=== PATIENT | female | born 1975 | race Caucasian/White ===

== ENCOUNTER 2020-05-12 11:17 | Outpatient (CLI) | payer OTHER, SELFPAY ==
--- NOTE | ~2020-05-12 | US_ITS ---
EXAMINATION: US venous doppler [facility] DATE: 05/12/2020 11:59 INDICATION: Lower limb swelling TECHNIQUE: [place]aver scale images without and with compression and Doppler images of the bilateral lower e xtremity veins were obtained. COMPARISON: None FINDINGS: The right common femoral vein, profunda femoral vein, femoral vein, popliteal vein, peroneal trunk, p osterior tibial veins, and greater saphenous vein are patent. The left common femoral vein, profunda femoral vein, femoral vein, popliteal vein, peroneal trunk, po sterior tibial veins, and greater saphenous vein are patent. IMPRESSION: 1. Patent bilateral lower extremity veins. No evidence of deep venous thrombosis. Reviewed, dictated and finalized at location A. [facility]NER IMPRESSION: 1. Patent bilateral lower extremity veins. No evidence of deep venous thrombosi s.
== END 2020-05-12 11:18 | disposition home or self-care (01) ==
LOC: ANHIMG 11:28
PROVIDERS: PCP Family Medicine; Visit Provider Nurse Practitioner Family
DX: R60.0 Localized edema (principal)
CPT/HCPCS: 93970

== ENCOUNTER 2023-03-09 08:37 | Emergency (ER) | payer OTHER, SELFPAY ==
--- NOTE | 2023-03-09 08:51 | ED.URI ---
HPI - URI/Sore Throat General Chief Complaint: Upper Respiratory Infection Stated Complaint: cough,congestion,bodyaches Time Seen by Provider: 03/09/23 08:51 Source: patient Mode of arrival: ambulatory Limitations: no limitations History of Present Illness HPI Narrative: Anny is a 47-year-old female patient presenting to the clinic today with complaints of cough, congestion, and body aches x2 days. She reports she is blowing her nose and coughing up green/yellow phlegm. She denies any fevers. Denies any sore throat, chest pain, or shortness of breath. Was given antibiotics and Tessalon Perles for and illness she had back in December. States that those symptoms completely resolved and over the last 2 days the symptoms began. MD elicited complaint: cough, nasal congestion and other (Body aches, chest congestion) Related Data Allergies Allergy/AdvReac Type Severity Reaction Status Date / Time Penicillins Allergy Unknown Rash Verified 03/09/23 09:03 Review of Systems Review of Systems: Pertinent positives per HPI. Patient denies any fever, chills, rash, headache, visual changes, dizziness, shortness of breath, chest pain, palpitations, nausea, vomiting, diarrhea, constipation, abdominal pain, or any urinary issues. [facility] Past Medical History Medical History Adult BMI 34.0-34.9 kg/sq m BMI 36.0-36.9,adult BMI 38.0-38.9,adult Family History Family History Mother Hypertension Father Cerebrovascular accident Social History Social History Smoking status: Never smoker Second hand tobacco smoke exposure: No Alcohol intake: never Substance use: never Substance use type: does not use Living arrangements: with family Occupation/Education: occupation Additional occupation/education comments: [employer] Gender identity (if verbalized by the patient): Female Comments At the time of my signature, I reviewed and agree with the nursing past medical, surgical, social, and family history. There is no relevant family history pertinent to the patient complaint. Exam Narrative: General: Well-developed, obese, in no apparent distress Head: Normocephalic, atraumatic Eyes: Pupils equally round and reactive to light bilaterally, EOM intact, sclera and conjunctive clear, no discharge, lids normal Ears: TMs intact and congested, ear canals clear, no drainage, grossly hearing normal. Nose: Nares patent, clear nasal discharge, moderate inflammation, no sinus tenderness. Mouth: Oral pharynx without lesions or masses, good dentition, MMM. Postnasal drip Neck: Supple, trachea midline, no enlargement of anterior or posterior cervical nodes, no thyroid masses or goiter palpable. Cardio: Regular rate and rhythm, s1 and s2 normal, no murmur appreciated. Resp: Clear to auscultation bilaterally, no rhonchi, rales, wheezing or rubs Course Course Emergency Course: Portions of this record may have been created with voice recognition software. Level of Care: Express Care Visit Vital Signs Vital signs: Vital signs reviewed MDM - URI/Sore Throat MDM Narrative Medical decision making narrative: At the time of visit patient is resting comfortably on the exam table. Patient appears to be nontoxic. Supportive measures were discussed with the patient and they voiced understanding discharge instructions and agrees to treatment plan. Return precautions reviewed Differential Diagnosis Differential diagnosis: Likely upper respiratory infection, otitis media, sinusitis, viral infection, bronchitis, influenza, pharyngitis and other (COVID) Discharge Plan Discharge Clinical Impression: Upper respiratory infection with cough and congestion Patient Disposition: Home, Self-Care Condition: Stable Instructions: Antibiotic Form, Upper
[2023-03-09 09:09] VITALS: BP 148/90; PULSE 91; RESP 18; TEMP 36.1; O2SAT 98
== END 2023-03-09 09:25 | disposition home or self-care (01) ==
LOC: EXPTROY 08:54
PROVIDERS: Emergency Provider Nurse Practitioner Family; PCP Family Medicine
DX: J06.9 Acute upper respiratory infection, unspecified (principal); Z20.822 Contact with and (suspected) exposure to COVID-19; I10 Essential (primary) hypertension
CPT/HCPCS: 87426; 87804; 99213; C9803; G0463

== ENCOUNTER 2024-09-22 13:15 | Emergency (ER) | payer OTHER, SELFPAY ==
--- NOTE | 2024-09-22 13:16 | ED_ITS ---
HPI - Skin/Abscess/Foreign Bdy General Chief complaint: Skin/Abscess/Foreign Body Stated complaint: Skin / RT Arm Time Seen by Provider: 09/22/24 13:16 Source: patient Mode of arrival: ambulatory Limitations: no limitations History of Present Illness HPI narrative: Anny is a 48-year-old female patient presenting to the clinic today with complaints of possible insect bite to the left proximal arm. She reports she injured his to 2 days ago. Started having some burning and stinging pain with some swelling to the left proximal medial forearm. Does have some slight itching and developed some hives. Hives have improved however she is having swelling and burning pain with some shooting pain down into the 4th and 5th fingers of the left hand. No fevers, chills, body aches. No respiratory distress-no shortness of breath, chest pain, tongue swelling, drooling, or difficulty swallowing. Related Data Allergies Allergy/AdvReac Type Severity Reaction Status Date / Time Penicillins Allergy Mild Rash Verified 09/22/24 13:17 Review of Systems Review of Systems: Pertinent positives per HPI. Patient denies any fever, chills, rash, headache, visual changes, dizziness, cough, shortness of breath, chest pain, palpitations, nausea, vomiting, diarrhea, constipation, abdominal pain, or any urinary issues. [facility] Past Medical History Medical History Elevated lipids BMI 36.0-36.9,adult Adult BMI 34.0-34.9 kg/sq m Elevated BP without diagnosis of hypertension BMI 38.0-38.9,adult Acute sore throat Family History Family History Mother Hypertension Hyperlipemia Father Cerebrovascular accident Hyperlipemia Hypertension Social History Social History Smoking status: Never smoker Second hand tobacco smoke exposure: No Alcohol intake: current Substance use: never Substance use type: does not use Do You Feel Safe in your Home?: Yes Lack of Transportation: No Lack of Food: Never True Current Housing: I Have Housing Concerned About Future Housing: No Difficulty Paying Gas/Electric Bills: No Difficulty Paying for Meds: No Currently Unemployed: No Education: Bachelor's Degree Difficulty w/ Childcare or Family Care: No Living arrangements: with family Occupation/Education: occupation Additional occupation/education comments: [employer]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 Gender identity (if verbalized by the patient): Female Comments At the time of my signature, I reviewed and agree with the nursing past medical, surgical, social, and family history. There is no relevant family history pertinent to the patient complaint. Exam Narrative: General: Well-developed, obese, in no apparent distress Head: Normocephalic, atraumatic. Cardio: Regular rate and rhythm, s1 and s2 normal, no murmur appreciated. Resp: Clear to auscultation bilaterally, no rhonchi, rales, wheezing or rubs. Integumentary: [place], warm, and dry, red raised rash with small amount of blistering- rash is erythemic and tenderness to palpation with induration with radiation of pain down to the 4th and 5th fingers Course Course Emergency Course: Portions of this record may have been created with voice recognition software. Level of Care: Express Care Visit Vital Signs Vital signs: Vital Signs Temperature 36.4 C 09/22/24 13:19 Pulse Rate 102 H 09/22/24 13:19 Respiratory Rate 16 09/22/24 13:19 Blood Pressure 124/83 09/22/24 13:19 Pulse Oximetry 100 09/22/24 13:19 Oxygen Delivery Room Air 09/22/24 13:19 Temperature 36.4 C 09/22/24 13:19 Pulse Rate 102 H 09/22/24 13:19 Respiratory Rate 16 09/22/24 13:19 Blood Pressure 124/83 09/22/24 13:19 Pulse Oximetry 100 09/22/24 13:19 Oxygen Delivery Room Air 09/22/24 13:19 Vital signs reviewed MDM - Skin/Abscess/Foreign Bdy MDM Narrative Medical decision making narrative: At the time of visit patient is resting comfortably on the exam table. Patient appears to be nontoxic. Possible insect bite to the left proximal arm. She reports she injured his to 2 days ago. Started having some burning and stinging pain with some swelling to the left proximal medial forearm. Does have some slight itching and developed some hives. No respiratory symptoms, tongue swelling, drooling, or difficulty swallowing. Plan: I suspect patient has an insect sting/bite to the left proximal medial forearm. Prescription for prednisone, triamcinolone cream, and clindamycin was sent to the pharmacy-will send in prednisone triamcinolone cream to help with inflammation and swelling as well as clindamycin to cover for infection. Supportive measures were discussed with the patient and they voiced understanding discharge instructions and agrees to treatment plan. Return precautions reviewed Differential Diagnosis Differential diagnosis: Likely abscess of skin or subcutaneous tissue, viral exanthem, dermatophytosis, urticaria, herpes zoster, allergic reaction to drug, cellulitis, eczema, insect bites, impetigo and contact dermatitis Discharge Plan Discharge Clinical Impression: Infected insect bite Qualifiers: Encounter type: initial encounter Qualified Code(s): W57.XXXA - Bitten or stung by nonvenomous insect and other nonvenomous arthropods, initial encounter Patient Disposition: Home Condition: Stable Instructions: Antibiotic Form, Insect Bite or Sting (ED) Additional Instructions: Take clindamycin as prescribed Take prednisone as directed Apply triamcinolone cream as directed Avoid scratching as this can cause a secondary infection May take benadryl 25-50mg every 6 hours as needed for itching/swelling Follow up with your PCP in 3-5 days if symptoms persist or sooner if they worsen Go to the Emergency Room if symptoms worsen- fever, rash spreading with treatment, shortness of breath, tongue swelling, drooling, or chest pain Patient Language: Kazakh Prescriptions: New prednisone 20 mg tablet 40 mg PO DAILY 5 Days Qty: 10 0RF triamcinolone acetonide 0.1 % cream 1 applic topical BID 7 Days Qty: 30 0RF clindamycin HCl [Cleocin HCl] 300 mg capsule 300 mg PO Q8H 7 Days Qty: 21 0RF No Action lisinopril-hydrochlorothiazide 10-12.5 mg tablet See Rx Instructions .ROUTE .COMPLEX Qty: 90 3RF Dose Instruction: TAKE 1 TABLET BY MOUTH DAILY Rx Instructions: TAKE 1 TABLET BY MOUTH DAILY sumatriptan succinate [Imitrex] 100 mg tablet See Rx Instructions PO .COMPLEX Qty: 10 2RF Rx Instructions: take 1 tab at onset of headache; if no relief, may repeat 1 tab after at least 2 hrs; max = 2 tabs/24 hrs PO Follow-up/Referrals: Adarsh Wilson MD [Primary Care Provider] - Time of Disposition: 13:32 Quality NIHSS Nursing Documentation ED NIHSS nursing documentation: reviewed/agree
[2024-09-22 13:19] VITALS: BP 124/83; PULSE 102; RESP 16; TEMP 36.4; O2SAT 100
--- OUTSIDE RECORDS SUMMARY | 2024-09-22 13:19 | XMS_ITS | Patient Health Record ---
Author Organization [facility] [employer] [place] ([address]) Address [address] [place] [phone] Care Team Providers Care Bottom Ironer Name Role Phone Chepe López Unavailable [phone] Reason For Referral No Information Medications Medication SIG (Take, Route, Fr equency, Duration) Notes Start Date End Date Status Lisinopril 2.5 MG 1 tab(s) orally once a day Active Problems Problem Type SNOMED Code ICD Code Onset Dates Problem Status W/U Status Risk Notes Problem Morbid obesity (disorder) (125649004) Morbid (severe) obesity due to excess calories (E66.01) Active confirmed Problem Malaise (859980137) Other malaise (R53.81) Active confirmed Problem Chronic fatigue syndrome (disorder) (21685722) Chronic fatigue, unspecified (R53.82) Active confirmed Problem Fatigue (35795568) Other fatigue (R53.83) Active confirmed Vital Signs Height 64.8 in 09/17/2024 Weight 202.6 lbs 09/17/2024 BMI 33.92 kg/m2 09/17/2024 Encounters Encounter Location Date Provider Diagnosis [facility] [employer] [place] ([address]) [address] [place] [phone] 09/23/2023 Chepe López Morbid (severe) obesity due to excess calories E66.01 ; Chronic fatigue, unspecified R53.82 ; Other fatigue R53.83 and Other malaise R53.81 [facility] [employer] [facility] ([address]) [address] [place] [phone] 09/30/2023 Chepe López Morbid (severe) obesity due to excess calories E66.01 ; Chronic fatigue, unspecified R53.82 ; Other fatigue R53.83 and Other malaise R53.81 [facility] [place] ([address]) [address] [place] [address] 10/07/2023 Chepe Win Morbid (severe) obesity due to excess calories E66.01 ; Chronic fatigue, unspecified R53.82 ; Other fatigue R53.83 and Other malaise R53.81 [facility] ([address]) [address] [place] [phone] 10/14/2023 Chepe Win Morbid (severe) obesity due to excess calories E66.01 ; Chronic fatigue, unspecified R53.82 ; Other fatigue R53.83 and Other malaise R53.81 [facility] ([address]) [address] [place] [phone] 10/21/2023 Chepe Win Morbid (severe) obesity due to excess calories E66.01 ; Chronic fatigue, unspecified R53.82 ; Other fatigue R53.83 and Other malaise R53.81 [facility] ([address]) [address] [place] [phone] 11/05/2023 Chepe Win Morbid (severe) obesity due to excess calories E66.01 ; Chronic fatigue, unspecified R53.82 ; Other fatigue R53.83 and Other malaise R53.81 [facility] ([address]) [address] [place] [phone] 11/11/2023 Chepe Win Morbid (severe) obesity due to excess calories E66.01 ; Chronic fatigue, unspecified R53.82 ; Other fatigue R53.83 and Other malaise R53.81 [facility] ([address]) [address] [place] [phone] 11/18/2023 Chepe Win Morbid (severe) obesity due to excess calories E66.01 ; Chronic fatigue, unspecified R53.82 ; Other fatigue R53.83 and Other malaise R53.81 [facility] ([address]) [address] [place] [address] 11/25/2023 Chepe Win Morbid (severe) obesity due to excess calories E66.01 ; Chronic fatigue, unspecified R53.82 ; Other fatigue R53.83 and Other malaise R53.81 [facility] [place] ([address]) [address] [place] [phone] 12/02/2023 Chepe Win [facility] ([address]) [address] [place] [phone] 12/02/2023 Chepe Win Morbid (severe) obesity due to excess calories E66.01 ; Chronic fatigue, unspecified R53.82 ; Other fatigue R53.83 and Other malaise R53.81 [facility] ([address]) [address] [place] [phone] 12/09/2023 Chepe Win Morbid (severe) obesity due to excess calories E66.01 ; Chronic fatigue, unspecified R53.82 ; Other fatigue R53.83 and Other malaise R53.81 [facility] ([address]) [address] [place] [phone] 12/16/2023 Chepe Win Morbid (severe) obesity due to excess calories E66.01 ; Chronic fatigue, unspecified R53.82 ; Other fatigue R53.83 and Other malaise R53.81 [facility] ([address]) [address] [place] [phone] 12/23/2023 Chepe Win Morbid (severe) obesity due to excess calories E66.01 ; Chronic fatigue, unspecified R53.82 ; Other fatigue R53.83 and Other malaise R53.81 [facility] ([address]) [address] [place] [phone] 12/30/2023 Chepe Win Morbid (severe) obesity due to excess calories E66.01 ; Chronic fatigue, unspecified R53.82 ; Other fatigue R53.83 and Other malaise R53.81 [facility] ([address]) [address] [place] [address] 01/13/2024 Chepe Win Morbid (severe) obesity due to excess calories E66.01 ; Chronic fatigue, unspecified R53.82 ; Other fatigue R53.83 and Other malaise R53.81 [facility] ([address]) [address] [place] [address] 01/20/2024 Chepe Win Morbid (severe) obesity due to excess calories E66.01 ; Chronic fatigue, unspecified R53.82 ; Other fatigue R53.83 and Other malaise R53.81 [facility] ([address]) [address] [place] [address] 01/28/2024 Chepe Win Morbid (severe) obesity due to excess calories E66.01 ; Chronic fatigue, unspecified R53.82 ; Other fatigue R53.83 and Other malaise R53.81 [facility] ([address]) [address] [place] [address] 02/17/2024 Chepe Win Morbid (severe) obesity due to excess calories E66.01 ; Chronic fatigue, unspecified R53.82 ; Other fatigue R53.83 and Other malaise R53.81 [facility] ([address]) [address] [place] [address] 02/24/2024 Chepe Win Morbid (severe) obesity due to excess calories E66.01 ; Chronic fatigue, unspecified R53.82 ; Other fatigue R53.83 and Other malaise R53.81 [facility] ([address]) [address] [place] [address] 03/02/2024 Chepe Win Morbid (severe) obesity due to excess calories E66.01 ; Chronic fatigue, unspecified R53.82 ; Other fatigue R53.83 and Other malaise R53.81 [facility] ([address]) [address] [place] [address] 03/16/2024 Chepe Win Morbid (severe) obesity due to excess calories E66.01 ; Chronic fatigue, unspecified R53.82 ; Other fatigue R53.83 and Other malaise R53.81 [facility] ([address]) [address] [place] [phone] 03/24/2024 Chepe Win Morbid (severe) obesity due to excess calories E66.01 ; Chronic fatigue, unspecified R53.82 ; Other fatigue R53.83 and Other malaise R53.81 [facility] ([address]) [address] [place] [phone] 04/01/2024 Chepe Win Morbid (severe) obesity due to excess calories E66.01 ; Chronic fatigue, unspecified R53.82 ; Other fatigue R53.83 and Other malaise R53.81 [facility] ([address]) [address] [place] [phone] 04/08/2024 Chepejamia López [facility] ([address]) [address] [place] [phone] 04/08/2024 Chepe Win Morbid (severe) obesity due to excess calories E66.01 ; Chronic fatigue, unspecified R53.82 ; Other fatigue R53.83 and Other malaise R53.81 [facility] ([address]) [address] [place] [phone] 04/14/2024 Chepe Win Morbid (severe) obesity due to excess calories E66.01 ; Chronic fatigue, unspecified R53.82 ; Other fatigue R53.83 and Other malaise R53.81 [facility] ([address]) [address] [place] [phone] 04/21/2024 Chepe Win Morbid (severe) obesity due to excess calories E66.01 ; Chronic fatigue, unspecified R53.82 ; Other fatigue R53.83 and Other malaise R53.81 [facility] ([address]) [address] [place] [phone] 04/28/2024 Chepe Win Morbid (severe) obesity due to excess calories E66.01 ; Chronic fatigue, unspecified R53.82 ; Other fatigue R53.83 and Other malaise R53.81 [facility] ([address]) [address] [place] [phone] 05/05/2024 Chepe Win Morbid (severe) obesity due to excess calories E66.01 ; Chronic fatigue, unspecified R53.82 ; Other fatigue R53.83 and Other malaise R53.81 [facility] ([address]) [address] [place] [phone] 05/12/2024 Chepe Win Morbid (severe) obesity due to excess calories E66.01 ; Chronic fatigue, unspecified R53.82 ; Other fatigue R53.83 and Other malaise R53.81 [facility] ([address]) [address] [place] [phone] 05/19/2024 Chepe Win Morbid (severe) obesity due to excess calories E66.01 ; Chronic fatigue, unspecified R53.82 ; Other fatigue R53.83 and Other malaise R53.81 [facility] ([address]) [address] [place] [phone] 05/26/2024 Chepe Win Morbid (severe) obesity due to excess calories E66.01 ; Chronic fatigue, unspecified R53.82 ; Other fatigue R53.83 and Other malaise R53.81 [facility] ([address]) [address] [place] [phone] 06/02/2024 Chepe Win Morbid (severe) obesity due to excess calories E66.01 ; Chronic fatigue, unspecified R53.82 ; Other fatigue R53.83 and Other malaise R53.81 [facility] ([address]) [address] [place] [phone] 06/09/2024 Chepe Win Morbid (severe) obesity due to excess calories E66.01 ; Chronic fatigue, unspecified R53.82 ; Other fatigue R53.83 and Other malaise R53.81 [facility] ([address]) [address] [place] [phone] 06/17/2024 Chepe López Morbid (severe) obesity due to excess calories E66.01 ; Chronic fatigue, unspecified R53.82 ; Other fatigue R53.83 and Other malaise R53.81 [facility] ([address]) [address] [place] [phone] 06/24/2024 Chepe Win Morbid (severe) obesity due to excess calories E66.01 ; Chronic fatigue, unspecified R53.82 ; Other fatigue R53.83 and Other malaise R53.81 [facility] ([address]) [address] [place] [phone] 07/02/2024 Chepe Win Morbid (severe) obesity due to excess calories E66.01 ; Chronic fatigue, unspecified R53.82 ; Other fatigue R53.83 and Other malaise R53.81 [facility] ([address]) [address] [place] [phone] 07/09/2024 Chepe Win Morbid (severe) obesity due to excess calories E66.01 ; Chronic fatigue, unspecified R53.82 ; Other fatigue R53.83 and Other malaise R53.81 [facility] ([address]) [address] [place] [phone] 07/16/2024 Chepe Win Morbid (severe) obesity due to excess calories E66.01 ; Chronic fatigue, unspecified R53.82 ; Other fatigue R53.83 and Other malaise R53.81 [facility] ([address]) [address] [place] [phone] 07/16/2024 Chepe Rene [facility] ([address]) [address] [place] [id number] 07/23/2024 Chepe Win Morbid (severe) obesity due to excess calories E66.01 ; Chronic fatigue, unspecified R53.82 ; Other fatigue R53.83 and Other malaise R53.81 [facility] & [facility] ([address]) [address] [place] [address] 07/30/2024 Chepe Win Morbid (severe) obesity due to excess calories E66.01 ; Chronic fatigue, unspecified R53.82 ; Other fatigue R53.83 and Other malaise R53.81 [facility] ([address]) [address] [place] [phone] 08/06/2024 Chepe Win Morbid (severe) obesity due to excess calories E66.01 ; Chronic fatigue, unspecified R53.82 ; Other fatigue R53.83 and Other malaise R53.81 [facility] ([address]) [address] [place] [phone] 08/13/2024 Chepe Win Morbid (severe) obesity due to excess calories E66.01 ; Chronic fatigue, unspecified R53.82 ; Other fatigue R53.83 and Other malaise R53.81 [facility] ([address]) [address] [place] [phone] 08/20/2024 Chepe Win Morbid (severe) obesity due to excess calories E66.01 ; Chronic fatigue, unspecified R53.82 ; Other fatigue R53.83 and Other malaise R53.81 [facility] ([address]) [address] [place] [phone] 08/27/2024 Chepe Win Morbid (severe) obesity due to excess calories E66.01 ; Chronic fatigue, unspecified R53.82 ; Other fatigue R53.83 and Other malaise R53.81 [facility] ([address]) [address] [place] [address] 09/03/2024 Chepe Win Morbid (severe) obesity due to excess calories E66.01 ; Chronic fatigue, unspecified R53.82 ; Other fatigue R53.83 and Other malaise R53.81 [facility] ([address]) [address] [place] [phone] 09/17/2024 Chepe López Morbid (severe) obesity due to excess calories E66.01 ; Chronic fatigue, unspecified R53.82 ; Other fatigue R53.83 and Other malaise R53.81 [facility] ([address]) [address] [place] [phone] 10/28/2023 Chepe López Morbid (severe) obesity due to excess calories E66.01 ; Chronic fatigue, unspecified R53.82 ; Other fatigue R53.83 and Other malaise R53.81 [facility] ([address]) [address] [place] [phone] 01/06/2024 Chepe López Morbid (severe) obesity due to excess calories E66.01 ; Chronic fatigue, unspecified R53.82 ; Other fatigue R53.83 and Other malaise R53.81 [facility] ([address]) [address] [place] [phone] 02/03/2024 Chepe López Morbid (severe) obesity due to excess calories E66.01 ; Chronic fatigue, unspecified R53.82 ; Other fatigue R53.83 and Other malaise R53.81 [facility] ([address]) [address] [place] [phone] 02/10/2024 Chepe López Morbid (severe) obesity due to excess calories E66.01 ; Chronic fatigue, unspecified R53.82 ; Other fatigue R53.83 and Other malaise R53.81 Assessments Encounter Date Diagnosis (ICD Code) Assessment Notes Treatment Notes Treatment Clinical Notes Section Notes 09/23/2023 Morbid (severe) obesity due to excess calories (ICD-10 - E66.01) BHRT questionnaire suggests issues with hormones. Considering BHRT labs. Will potentially order next visit 09/23/2023 Chronic fatigue, unspecified (ICD-10 - R53.82) 09/30/2023 Morbid (severe) obesity due to excess calories (ICD-10 - E66.01) BHRT questionnaire suggests issues with hormones. Considering BHRT labs. Will potentially order next visit 09/30/2023 Chronic fatigue, unspecified (ICD-10 - R53.82) 10/07/2023 Morbid (severe) obesity due to excess calories (ICD-10 - E66.01) BHRT questionnaire suggests issues with hormones. Considering BHRT labs. Will potentially order next visit 10/07/2023 Chronic fatigue, unspecified (ICD-10 - R53.82) 10/14/2023 Morbid (severe) obesity due to excess calories (ICD-10 - E66.01) BHRT questionnaire suggests issues with hormones. Considering BHRT labs. 10/14/2023 Chronic fatigue, unspecified (ICD-10 - R53.82) 10/21/2023 Morbid (severe) obesity due to excess calories (ICD-10 - E66.01) BHRT questionnaire suggests issues with hormones. Considering BHRT labs. 10/21/2023 Chronic fatigue, unspecified (ICD-10 - R53.82) 10/28/2023 Morbid (severe) obesity due to excess calories (ICD-10 - E66.01) BHRT questionnaire suggests issues with hormones. Considering BHRT labs. 10/28/2023 Chronic fatigue, unspecified (ICD-10 - R53.82) 11/05/2023 Morbid (severe) obesity due to excess calories (ICD-10 - E66.01) BHRT questionnaire suggests issues with hormones. Considering BHRT labs. 11/05/2023 Chronic fatigue, unspecified (ICD-10 - R53.82) 11/11/2023 Morbid (severe) obesity due to excess calories (ICD-10 - E66.01) BHRT questionnaire suggests issues with hormones. Considering BHRT labs. 11/11/2023 Chronic fatigue, unspecified (ICD-10 - R53.82) 11/18/2023 Morbid (severe) obesity due to excess calories (ICD-10 - E66.01) BHRT questionnaire suggests issues with hormones. Considering BHRT labs. 11/18/2023 Chronic fatigue, unspecified (ICD-10 - R53.82) 11/25/2023 Morbid (severe) obesity due to excess calories (ICD-10 - E66.01) RT questionnaire suggests issues with hormones. Considering BHRT labs. 11/25/2023 Chronic fatigue, unspecified (ICD-10 - R53.82) 12/02/2023 Morbid (severe) obesity due to excess calories (ICD-10 - E66.01) RT questionnaire suggests issues with hormones. Considering BHRT labs. 12/02/2023 Chronic fatigue, unspecified (ICD-10 - R53.82) 12/09/2023 Morbid (severe) obesity due to excess calories (ICD-10 - E66.01) RT questionnaire suggests issues with hormones. Considering BHRT labs. 12/09/2023 Chronic fatigue, unspecified (ICD-10 - R53.82) 12/16/2023 Morbid (severe) obesity due to excess calories (ICD-10 - E66.01) RT questionnaire suggests issues with hormones. Considering BHRT labs. 12/16/2023 Chronic fatigue, unspecified (ICD-10 - R53.82) 12/23/2023 Morbid (severe) obesity due to excess calories (ICD-10 - E66.01) RT questionnaire suggests issues with hormones. Considering BHRT labs. 12/23/2023 Chronic fatigue, unspecified (ICD-10 - R53.82) 12/30/2023 Morbid (severe) obesity due to excess calories (ICD-10 - E66.01) RT questionnaire suggests issues with hormones. Considering BHRT labs. 12/30/2023 Chronic fatigue, unspecified (ICD-10 - R53.82) 01/06/2024 Morbid (severe) obesity due to excess calories (ICD-10 - E66.01) RT questionnaire suggests issues with hormones. Considering BHRT labs. 01/06/2024 Chronic fatigue, unspecified (ICD-10 - R53.82) 01/13/2024 Morbid (severe) obesity due to excess calories (ICD-10 - E66.01) RT questionnaire suggests issues with hormones. Considering BHRT labs. 01/13/2024 Chronic fatigue, unspecified (ICD-10 - R53.82) 01/20/2024 Morbid (severe) obesity due to excess calories (ICD-10 - E66.01) RT questionnaire suggests issues with hormones. Considering BHRT labs. 01/20/2024 Chronic fatigue, unspecified (ICD-10 - R53.82) 01/28/2024 Morbid (severe) obesity due to excess calories (ICD-10 - E66.01) BHRT questionnaire suggests issues with hormones. Considering BHRT labs. 01/28/2024 Chronic fatigue, unspecified (ICD-10 - R53.82) 02/03/2024 Morbid (severe) obesity due to excess calories (ICD-10 - E66.01) BHRT questionnaire suggests issues with hormones. Considering BHRT labs. 02/03/2024 Chronic fatigue, unspecified (ICD-10 - R53.82) 02/10/2024 Morbid (severe) obesity due to excess calories (ICD-10 - E66.01) BHRT questionnaire suggests issues with hormones. Considering BHRT labs. 02/10/2024 Chronic fatigue, unspecified (ICD-10 - R53.82) 02/17/2024 Morbid (severe) obesity due to excess calories (ICD-10 - E66.01) BHRT questionnaire suggests issues with hormones. Considering BHRT labs. 02/17/2024 Chronic fatigue, unspecified (ICD-10 - R53.82) 02/24/2024 Morbid (severe) obesity due to excess calories (ICD-10 - E66.01) BHRT questionnaire suggests issues with hormones. Considering BHRT labs. 02/24/2024 Chronic fatigue, unspecified (ICD-10 - R53.82) 03/02/2024 Morbid (severe) obesity due to excess calories (ICD-10 - E66.01) BHRT questionnaire suggests issues with hormones. Considering BHRT labs. 03/02/2024 Chronic fatigue, unspecified (ICD-10 - R53.82) 03/16/2024 Morbid (severe) obesity due to excess calories (ICD-10 - E66.01) BHRT questionnaire suggests issues with hormones. Considering BHRT labs. 03/16/2024 Chronic fatigue, unspecified (ICD-10 - R53.82) 03/24/2024 Morbid (severe) obesity due to excess calories (ICD-10 - E66.01) BHRT questionnaire suggests issues with hormones. Considering BHRT labs. 03/24/2024 Chronic fatigue, unspecified (ICD-10 - R53.82) 04/01/2024 Morbid (severe) obesity due to excess calories (ICD-10 - E66.01) BHRT questionnaire suggests issues with hormones. Considering BHRT labs. 04/01/2024 Chronic fatigue, unspecified (ICD-10 - R53.82) 04/08/2024 Morbid (severe) obesity due to excess calories (ICD-10 - E66.01) BHRT questionnaire suggests issues with hormones. Considering BHRT labs. 04/08/2024 Chronic fatigue, unspecified (ICD-10 - R53.82) 04/14/2024 Morbid (severe) obesity due to excess calories (ICD-10 - E66.01) BHRT questionnaire suggests issues with hormones. Considering BHRT labs. 04/14/2024 Chronic fatigue, unspecified (ICD-10 - R53.82) 04/21/2024 Morbid (severe) obesity due to excess calories (ICD-10 - E66.01) RT questionnaire suggests issues with hormones. Considering BHRT labs. 04/21/2024 Chronic fatigue, unspecified (ICD-10 - R53.82) 04/28/2024 Morbid (severe) obesity due to excess calories (ICD-10 - E66.01) RT questionnaire suggests issues with hormones. Considering BHRT labs. 04/28/2024 Chronic fatigue, unspecified (ICD-10 - R53.82) 05/05/2024 Morbid (severe) obesity due to excess calories (ICD-10 - E66.01) RT questionnaire suggests issues with hormones. Considering BHRT labs. 05/05/2024 Chronic fatigue, unspecified (ICD-10 - R53.82) 05/12/2024 Morbid (severe) obesity due to excess calories (ICD-10 - E66.01) BHRT questionnaire suggests issues with hormones. Considering BHRT labs. 05/12/2024 Chronic fatigue, unspecified (ICD-10 - R53.82) 05/19/2024 Morbid (severe) obesity due to excess calories (ICD-10 - E66.01) BHRT questionnaire suggests issues with hormones. Considering BHRT labs. 05/19/2024 Chronic fatigue, unspecified (ICD-10 - R53.82) 05/26/2024 Morbid (severe) obesity due to excess calories (ICD-10 - E66.01) BHRT questionnaire suggests issues with hormones. Considering BHRT labs. 05/26/2024 Chronic fatigue, unspecified (ICD-10 - R53.82) 06/02/2024 Morbid (severe) obesity due to excess calories (ICD-10 - E66.01) BHRT questionnaire suggests issues with hormones. Considering BHRT labs. 06/02/2024 Chronic fatigue, unspecified (ICD-10 - R53.82) 06/09/2024 Morbid (severe) obesity due to excess calories (ICD-10 - E66.01) BHRT questionnaire suggests issues with hormones. Considering BHRT labs. 06/09/2024 Chronic fatigue, unspecified (ICD-10 - R53.82) 06/17/2024 Morbid (severe) obesity due to excess calories (ICD-10 - E66.01) BHRT questionnaire suggests issues with hormones. Considering BHRT labs. 06/17/2024 Chronic fatigue, unspecified (ICD-10 - R53.82) 06/24/2024 Morbid (severe) obesity due to excess calories (ICD-10 - E66.01) BHRT questionnaire suggests issues with hormones. Considering RT labs. 06/24/2024 Chronic fatigue, unspecified (ICD-10 - R53.82) 07/02/2024 Morbid (severe) obesity due to excess calories (ICD-10 - E66.01) BHRT questionnaire suggests issues with hormones. Considering BHRT labs. 07/02/2024 Chronic fatigue, unspecified (ICD-10 - R53.82) 07/09/2024 Morbid (severe) obesity due to excess calories (ICD-10 - E66.01) BHRT questionnaire suggests issues with hormones. Considering BHRT labs. 07/09/2024 Chronic fatigue, unspecified (ICD-10 - R53.82) 07/16/2024 Morbid (severe) obesity due to excess calories (ICD-10 - E66.01) BHRT questionnaire suggests issues with hormones. Considering BHRT labs. 07/16/2024 Chronic fatigue, unspecified (ICD-10 - R53.82) 07/23/2024 Morbid (severe) obesity due to excess calories (ICD-10 - E66.01) BHRT questionnaire suggests issues with hormones. Considering BHRT labs. 07/23/2024 Chronic fatigue, unspecified (ICD-10 - R53.82) 07/30/2024 Morbid (severe) obesity due to excess calories (ICD-10 - E66.01) RT questionnaire suggests issues with hormones. Considering BHRT labs. 07/30/2024 Chronic fatigue, unspecified (ICD-10 - R53.82) 08/06/2024 Morbid (severe) obesity due to excess calories (ICD-10 - E66.01) BHRT questionnaire suggests issues with hormones. Considering BHRT labs. 08/06/2024 Chronic fatigue, unspecified (ICD-10 - R53.82) 08/13/2024 Morbid (severe) obesity due to excess calories (ICD-10 - E66.01) RT questionnaire suggests issues with hormones. Considering BHRT labs. 08/13/2024 Chronic fatigue, unspecified (ICD-10 - R53.82) 08/20/2024 Morbid (severe) obesity due to excess calories (ICD-10 - E66.01) RT questionnaire suggests issues with hormones. Considering BHRT labs. 08/20/2024 Chronic fatigue, unspecified (ICD-10 - R53.82) 08/27/2024 Morbid (severe) obesity due to excess calories (ICD-10 - E66.01) RT questionnaire suggests issues with hormones. Considering BHRT labs. 08/27/2024 Chronic fatigue, unspecified (ICD-10 - R53.82) 09/03/2024 Morbid (severe) obesity due to excess calories (ICD-10 - E66.01) RT questionnaire suggests issues with hormones. Considering BHRT labs. 09/03/2024 Chronic fatigue, unspecified (ICD-10 - R53.82) 09/17/2024 Morbid (severe) obesity due to excess calories (ICD-10 - E66.01) RT questionnaire suggests issues with hormones. Considering BHRT labs. 09/17/2024 Chronic fatigue, unspecified (ICD-10 - R53.82) 09/17/2024 Other fatigue (ICD-10 - R53.83) 09/03/2024 Other fatigue (ICD-10 - R53.83) 08/27/2024 Other fatigue (ICD-10 - R53.83) 08/20/2024 Other fatigue (ICD-10 - R53.83) 08/13/2024 Other fatigue (ICD-10 - R53.83) 08/06/2024 Other fatigue (ICD-10 - R53.83) 07/30/2024 Other fatigue (ICD-10 - R53.83) 07/23/2024 Other fatigue (ICD-10 - R53.83) 07/16/2024 Other fatigue (ICD-10 - R53.83) 07/09/2024 Other fatigue (ICD-10 - R53.83) 07/02/2024 Other fatigue (ICD-10 - R53.83) 06/24/2024 Other fatigue (ICD-10 - R53.83) 06/17/2024 Other fatigue (ICD-10 - R53.83) 06/09/2024 Other fatigue (ICD-10 - R53.83) 06/02/2024 Other fatigue (ICD-10 - R53.83) 05/26/2024 Other fatigue (ICD-10 - R53.83) 05/19/2024 Other fatigue (ICD-10 - R53.83) 05/12/2024 Other fatigue (ICD-10 - R53.83) 05/05/2024 Other fatigue (ICD-10 - R53.83) 04/28/2024 Other fatigue (ICD-10 - R53.83) 04/21/2024 Other fatigue (ICD-10 - R53.83) 04/14/2024 Other fatigue (ICD-10 - R53.83) 04/08/2024 Other fatigue (ICD-10 - R53.83) 04/01/2024 Other fatigue (ICD-10 - R53.83) 03/24/2024 Other fatigue (ICD-10 - R53.83) 03/16/2024 Other fatigue (ICD-10 - R53.83) 03/02/2024 Other fatigue (ICD-10 - R53.83) 02/24/2024 Other fatigue (ICD-10 - R53.83) 02/17/2024 Other fatigue (ICD-10 - R53.83) 02/10/2024 Other fatigue (ICD-10 - R53.83) 02/03/2024 Other fatigue (ICD-10 - R53.83) 01/28/2024 Other fatigue (ICD-10 - R53.83) 01/20/2024 Other fatigue (ICD-10 - R53.83) 01/13/2024 Other fatigue (ICD-10 - R53.83) 01/06/2024 Other fatigue (ICD-10 - R53.83) 12/30/2023 Other fatigue (ICD-10 - R53.83) 12/23/2023 Other fatigue (ICD-10 - R53.83) 12/16/2023 Other fatigue (ICD-10 - R53.83) 12/09/2023 Other fatigue (ICD-10 - R53.83) 12/02/2023 Other fatigue (ICD-10 - R53.83) 11/25/2023 Other fatigue (ICD-10 - R53.83) 11/18/2023 Other fatigue (ICD-10 - R53.83) 11/11/2023 Other fatigue (ICD-10 - R53.83) 11/05/2023 Other fatigue (ICD-10 - R53.83) 10/28/2023 Other fatigue (ICD-10 - R53.83) 10/21/2023 Other fatigue (ICD-10 - R53.83) 10/14/2023 Other fatigue (ICD-10 - R53.83) 10/07/2023 Other fatigue (ICD-10 - R53.83) 09/30/2023 Other fatigue (ICD-10 - R53.83) 09/23/2023 Other fatigue (ICD-10 - R53.83) 09/23/2023 Other malaise (ICD-10 - R53.81) 09/30/2023 Other malaise (ICD-10 - R53.81) 10/07/2023 Other malaise (ICD-10 - R53.81) 10/14/2023 Other malaise (ICD-10 - R53.81) 10/21/2023 Other malaise (ICD-10 - R53.81) 10/28/2023 Other malaise (ICD-10 - R53.81) 11/05/2023 Other malaise (ICD-10 - R53.81) 11/11/2023 Other malaise (ICD-10 - R53.81) 11/18/2023 Other malaise (ICD-10 - R53.81) 11/25/2023 Other malaise (ICD-10 - R53.81) 12/02/2023 Other malaise (ICD-10 - R53.81) 12/09/2023 Other malaise (ICD-10 - R53.81) 12/16/2023 Other malaise (ICD-10 - R53.81) 12/23/2023 Other malaise (ICD-10 - R53.81) 12/30/2023 Other malaise (ICD-10 - R53.81) 01/06/2024 Other malaise (ICD-10 - R53.81) 01/13/2024 Other malaise (ICD-10 - R53.81) 01/20/2024 Other malaise (ICD-10 - R53.81) 01/28/2024 Other malaise (ICD-10 - R53.81) 02/03/2024 Other malaise (ICD-10 - R53.81) 02/10/2024 Other malaise (ICD-10 - R53.81) 02/17/2024 Other malaise (ICD-10 - R53.81) 02/24/2024 Other malaise (ICD-10 - R53.81) 03/02/2024 Other malaise (ICD-10 - R53.81) 03/16/2024 Other malaise (ICD-10 - R53.81) 03/24/2024 Other malaise (ICD-10 - R53.81) 04/01/2024 Other malaise (ICD-10 - R53.81) 04/08/2024 Other malaise (ICD-10 - R53.81) 04/14/2024 Other malaise (ICD-10 - R53.81) 04/21/2024 Other malaise (ICD-10 - R53.81) 04/28/2024 Other malaise (ICD-10 - R53.81) 05/05/2024 Other malaise (ICD-10 - R53.81) 05/12/2024 Other malaise (ICD-10 - R53.81) 05/19/2024 Other malaise (ICD-10 - R53.81) 05/26/2024 Other malaise (ICD-10 - R53.81) 06/02/2024 Other malaise (ICD-10 - R53.81) 06/09/2024 Other malaise (ICD-10 - R53.81) 06/17/2024 Other malaise (ICD-10 - R53.81) 06/24/2024 Other malaise (ICD-10 - R53.81) 07/02/2024 Other malaise (ICD-10 - R53.81) 07/09/2024 Other malaise (ICD-10 - R53.81) 07/16/2024 Other malaise (ICD-10 - R53.81) 07/23/2024 Other malaise (ICD-10 - R53.81) 07/30/2024 Other malaise (ICD-10 - R53.81) 08/06/2024 Other malaise (ICD-10 - R53.81) 08/13/2024 Other malaise (ICD-10 - R53.81) 08/20/2024 Other malaise (ICD-10 - R53.81) 08/27/2024 Other malaise (ICD-10 - R53.81) 09/03/2024 Other malaise (ICD-10 - R53.81) 09/17/2024 Other malaise (ICD-10 - R53.81) Plan Of Treatment Next Appt Details Provider Name:Chepe HKwame López , 09/24/2024 08:00:00 AM, [address], [place] [address], [place], [address],
--- OUTSIDE RECORDS SUMMARY | 2024-09-22 13:19 | XMS_ITS | Clinical Summary ---
Author Organization [facility] Administrative Offices Address [address] [place] [phone] Care Team Providers Care Medical Records Coder Name Role Phone Unavailable Primary Care Provider Unavailabl e Family History Medical History Relation Name Comments Breast Cancer Neg Hx Ovarian Cancer Neg Hx Social History Tobacco Use Types Packs/Day Years Used Date Smoking Tobacco: Never Assessed Comments Unknown Sex and Gender Information Value Date Recorded Sex Assigned at Not on file Legal Sex Female 11:56 AM CDT Gender Identity Not on file Sexual Orientation Not on file Plan of Treatment Health Maintenance Due Date Last Done Comments DTAP/TDAP/TD VACCINES (1 - Tdap) 1993 HEPATITIS B VACCINES (1 of 3 - 19+ 3-dose series) 05/1993 HPV/Cotest (21-29) 12/05/1995 CERVICAL CANCER SCREENING 2004 HPV/Cotest (30-65) 2004 PAP SMEAR 2004 BREAST CANCER SCREENING 01/11/2017 01/12/2016 COLORECTAL SCREENING 12/05/2019 Colorectal Cancer Screening 12/05/2019 FIT-DNA Q 3 years 12/05/2019 FIT/FOBT Q 1 year 12/05/2019 Flex Sig/CT Colonography Q 5 years 12/05/2019 INFLUENZA VACCINE (#1) 2024 Procedures Procedure Name Priority Date/Time Associated Diagnosis Comments MAMMO SCREEN BILAT W OR WO CAD Routine 01/12/2016 9:35 AM JOB SERVICE CONSULTANT Visit for screening mammogram from Last 3 Months or Most Recently Relevant to Health Maintenance Results * MAMMO DIGITAL SCREEN BILAT (01/12/2016 9:35 AM JOB SERVICE CONSULTANT) Anatomical Region Laterality Modality Breast Bilateral Mammography Narrative 01/16/2016 9:07 AM JOB SERVICE CONSULTANT Bilateral digital screening mammogram with computer assisted diagnosis History: Annual screening exam. Findings: A bilateral screening mammogram was performed. This is the patient's baseline study. The breast parenchyma is heterogeneously dense which can obscure small masses. No masses, suspicious calcifications, or areas of asymmetry or distortion are identified. CAD was utilized. Impression: Negative screening mammogram. Recommendation: Routine annual follow-up Overall Assessment: Birads Category 1: Negative us Amy Glaser MD MAMMO ORDERABLES Final Res ult from Last 3 Months or Most Recently Relevant to Health Maintenance Insurance [employer]
--- OUTSIDE RECORDS SUMMARY | 2024-09-22 13:20 | XMS_ITS ---
Author Organization [facility] [place] ([address]) Address [address] [place] [phone] Care Team Providers Care Cup Machine Operator Name Role Phone ReneChepe [phone] REASON FOR VISIT [facility] Weight Loss, on tirzepatide, appetite suppression adequate lasting 3-4 days, increased protein and water, encouraged increased fiber, Desired weight loss: 35-40 lbs -2.4 lbs since last visit and -33.2 lbs since starting medical weight loss program, No history MTC or MEN2 or pancreatitis, Concerned about future DM and OA Medications Medication SIG (Take, Route, Fr equency, Duration) Notes Start Date End Date Status Lisinopril 2.5 MG 1 tab(s) orally once a day Active Vital Signs Height 64.8 in 09/17/2024 Weight 202.6 lbs 09/17/2024 BMI 33.92 kg/m2 09/17/2024 Encounters Encounter Location Date Provider Diagnosis [facility] ([address]) [address] [place] [phone] 09/17/2024 Chepe López Morbid (severe) obesity due to excess calories E66.01 ; Chronic fatigue, unspecified R53.82 ; Other fatigue R53.83 and Other malaise R53.81 Assessments Encounter Date Diagnosis (ICD Code) Assessment Notes Treatment Notes Treatment Clinical Notes Section Notes 09/17/2024 Morbid (severe) obesity due to excess calories (ICD-10 - E66.01) BHRT questionnaire suggests issues with hormones. Considering BHRT labs. 09/17/2024 Chronic fatigue, unspecified (ICD-10 - R53.82) 09/17/2024 Other fatigue (ICD-10 - R53.83) 09/17/2024 Other malaise (ICD-10 - R53.81) Plan Of Treatment Treatment Notes Assessment Notes Morbid (severe) obesity due to excess calories BHRT questionnaire suggests issues with hormones. Considering BHRT labs. Next Appt Details Follow Up: 1 Week, Reason: G LP-1 Agonist Administration Provider Name:Chepe Spence Rene , 09/24/2024 08:00:00 AM, [address], [address], [phone], Procedure Notes * Category Sub-Category Detail Notes Quell: Weight Management tirzepatide Indication: weig ht loss Concentration: 10 mg/mL Volume Administered: 0.6 mL Dose Administered: 6 mg Route: SQ Location: Right abdomen Frequency: weekly Lot Number/Expiration: Medication Source: [place] Adverse Reaction: None Progress Notes * Tiffany WOLFEOB:1975 ( 48 yo F)Acc No.[id number]:09/17/2024 Weight Loss Patient: Anny CANTOR Provider: Aida López MD :1975 A ge:48 Y S ex:Female Date:09/17/2024 [facility] Subjective: * Chief Complaints: * 1 . [facility] Weight Loss, on tirzepatide, appetite suppression adequate lasting 3-4 days, increased protein and water, encouraged increased fiber. 2. Desired weight loss: 35-40 lbs -2.4 lbs since last visit and -33.2 lbs since starting medical weight loss program. 3. No history MTC or MEN2 or pancreatitis. 4. Concerned about future DM and OA. * Medical History: * Medications: T aking Lisinopril 2.5 MG Tablet 1 tab(s) orally once a day Objective: * Vitals: H t: 64.8 in, Wt:202.6lbs, BMI:33.92Index. Assessment: * Assessment: 1. M orbid (severe) obesity due to excess calories - E66.01 (Primary) 2 . C hronic fatigue, unspecified - R53.82 3 . O ther fatigue - R53.83 ?4. O ther malaise - R53.81 Plan: * Treatment: * Procedures: Q uell: Weight Management: tirzepatide I ndication w eight loss C oncentration 1 0 mg/mL V olume Administered 0 .6 mL D ose Administered 6 mg R oute S Q L ocation R ight abdomen F requency w eekly L ot Number/Expiration 0 -2024 M edication Source [facility] A dverse Reaction N one * Follow Up: 1 Week (Reason: GLP-1 Agonist Administration) * Billing Information: * Visit Code: * Procedure Codes: 91260 [facility] - Weekly (tirzepatide) Tier 2. * Electronic signature of Ny López MD, FAAAAI on 09/22/2024 at 01:20 PM CDT Sign off status: Pending * Provider: Aida López MD Date: 09/17/2024 Generated for Cucoi rosalee/Yomi/eTransmitting on: 09/22/2024 01:20 PM CDT
--- OUTSIDE RECORDS SUMMARY | 2024-09-22 13:21 | XMS_ITS ---
Author Organization [facility] [place] ([address]) Address [address] [place] [phone] Care Team Providers Care Tour Sales Representative Name Role Phone ReneChepe [phone] REASON FOR VISIT [facility] Weight Loss, on tirzepatide, appetite suppression adequate lasting 3-4 days, increased protein and water, encouraged increased fiber, Desired weight loss: 35-40 lbs +0.5 lbs since last visit and -31.2 lbs since starting medical weight loss program, No history MTC or MEN2 or pancreatitis, Concerned about future DM and OA Medications Medication SIG (Take, Route, Fr equency, Duration) Notes Start Date End Date Status Lisinopril 2.5 MG 1 tab(s) orally once a day Active Vital Signs Height 64.8 in 08/27/2024 Weight 204.6 lbs 08/27/2024 BMI 34.25 kg/m2 08/27/2024 Encounters Encounter Location Date Provider Diagnosis [facility] [place] ([address]) [address] [place] [phone] 08/27/2024 Chepe López Morbid (severe) obesity due to excess calories E66.01 ; Chronic fatigue, unspecified R53.82 ; Other fatigue R53.83 and Other malaise R53.81 Assessments Encounter Date Diagnosis (ICD Code) Assessment Notes Treatment Notes Treatment Clinical Notes Section Notes 08/27/2024 Morbid (severe) obesity due to excess calories (ICD-10 - E66.01) BHRT questionnaire suggests issues with hormones. Considering BHRT labs. 08/27/2024 Chronic fatigue, unspecified (ICD-10 - R53.82) 08/27/2024 Other fatigue (ICD-10 - R53.83) 08/27/2024 Other malaise (ICD-10 - R53.81) Plan Of Treatment Treatment Notes Assessment Notes Morbid (severe) obesity due to excess calories BHRT questionnaire suggests issues with hormones. Considering BHRT labs. Next Appt Details Follow Up: 1 Week, Reason: G LP-1 Agonist Administration Provider Name:Chepe Spence Rene , 09/24/2024 08:00:00 AM, [address], [address], [phone], Procedure Notes * Category Sub-Category Detail Notes Quell: Weight Management tirzepatide Indication: weig ht loss Concentration: 10 mg/mL Volume Administered: 0.55 mL Dose Administered: 5.5 mg Route: SQ Location: [facility] Frequency: weekly Lot Number/Expiration: Medication Source: [employer] Adverse Reaction: None Progress Notes * Tiffany WOLFEOB:1975 ( 48 yo F)Acc No.[id number]:08/27/2024 Weight Loss Patient: Anny CANTOR Provider: Aida López MD :1975 A ge:48 Y S ex:Female Date:08/27/2024 Address:[address] [place], [place] [id number] Subjective: * Chief Complaints: * 1 . [facility] Weight [facility], on tirzepatide, appetite suppression adequate lasting 3-4 days, increased protein and water, encouraged increased fiber. 2. Desired weight loss: 35-40 lbs +0.5 lbs since last visit and -31.2 lbs since starting medical weight loss program. 3. No history MTC or MEN2 or pancreatitis. 4. Concerned about future DM and OA. * Medical History: * Medications: T aking Lisinopril 2.5 MG Tablet 1 tab(s) orally once a day Objective: * Vitals: H t: 64.8 in, Wt:204.6lbs, BMI:34.25Index. Assessment: * Assessment: 1. M orbid (severe) obesity due to excess calories - E66.01 (Primary) 2 . C hronic fatigue, unspecified - R53.82 3 . O ther fatigue - R53.83 ?4. O ther malaise - R53.81 Plan: * Treatment: * Procedures: Q uell: Weight Management: tirzepatide I ndication w eight loss C oncentration 1 0 mg/mL V olume Administered 0 .55 mL D ose Administered 5 .5 mg R oute S Q L ocation R UA F requency w eekly L ot Number/Expiration 0 M edication Source A [facility] [employer] A dverse Reaction N one * Follow Up: 1 Week (Reason: GLP-1 Agonist Administration) * Billing Information: * Visit Code: * Procedure Codes: 28548 [facility] - Weekly (tirzepatide) Tier 2. * Electronic signature of Patnii López MD, FAAAAI on 09/22/2024 at 01:21 PM CDT Sign off status: Pending * Provider: Aida López MD Date: 0 08/27/2024 Generated for Cucoi rosalee/Yomi/Kanaitting on: 0 09/22/2024 01:21 PM CDT
--- OUTSIDE RECORDS SUMMARY | 2024-09-22 13:22 | XMS_ITS | Clinical Summary ---
Author Organization [facility] Address [address] [place] [address] Care Team Providers Care Fine Dining Server Name Role Phone Adarsh Wilson MD Primary Care Provider [phone] Source Comments [facility],non-owned Affiliates and Associated Physician Practices is amultiple site organization consisting of ambulatory clinics and hospital sitesin [place], [place], [place] and [place]. This disclosure is being madepursuant to the Care Everywhere program and may not contain all information available regarding this patient. Last updated 17.[facility] Allergies Active Allergy Reactions Criticality Noted Date Comments Penicillins Rash Medium 07/03/2016 Medications * Be aware that medications may not be up to date on this document. Alwaysverify current medications with the patient. benzonatate (TESSALON) 200 MG capsuleIndications :Acute bronchitis, unspecified organism Take 1 capsule by mouth 3 times daily as needed for Cough 30 capsule 12/14/19 17 Active Additional Information Patient not taking.Reported on 12/25/2016 ciprofloxacin 0.3% (CILOXAN) 0.3 % ophthalmic solutionIndication s:Mucopurulent conjunctivitis of right eye Instill 1 drop into right eye every 2 hours while awake x2 days, then q4 hours while awake x5 days 5 mL 12/14/19 17 Active Additional Information Patient not taking.Reported on 12/25/2016 fluticasone propionate (FLONASE) 50 MCG/ACT nasal sprayIndications:P ost-nasal drainage [place] 2 sprays into each nostril once daily 1 bottles 12/14/19 17 Active Additional Information Patient not taking.Reported on 12/25/2016 Active Problems No known active problems Family History Medical History Relation Name Comments Hypertension Mother Relation Name Status Comments Mother Social History Tobacco Use Types Packs/Day Years Used Date Smoking Tobacco: Never Smokeless Tobacco: Never Comments No Sex and Gender Information Value Date Recorded Sex Assigned at Not on file Legal 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 Gender Identity Not on file Sexual Orientation Not on file Last Filed Vital Signs Vital Sign Reading Time Taken Comments Blood Pressure 118/80 12/25/2016 10:05 AM CDT Pulse 86 12/25/2016 10:05 AM CDT Temperature 36.8 C (98.2 F) 12/25/2016 10:05 AM CDT Respiratory Rate 16 12/25/2016 10:05 AM CDT Oxygen Saturation 99% 12/25/2016 10:05 AM CDT Inhaled Oxygen Concentration - - Weight 108.9 kg (240 lb) 12/25/2016 10:05 AM CDT Height 167.6 cm (5' 6) 12/25/2016 10:05 AM CDT Body Mass Index 38.74 12/25/2016 10:05 AM CDT Plan of Treatment Health Maintenance Due Date Last Done Comments COLOGUARD (AGES 45-75) - COL ON CA SCREENING 1975 COLON MONITORING 1974 COLONOSCOPY - COLON CA SCREENING 1974 CT COLONOGRAPHY - COLON CA SCREENING 1975 Colorectal Cancer Screening 1974 FIT - COLON CA SCREENING 1974 FLEX SIG - COLON CA SCREENING 1974 LIPID TESTING 1974 MAMMOGRAM 1974 HIV SCREENING 1989 HEPATITIS C SCREENING 11/29/1992 DTAP/TDAP/TD VACCINES (1 - Tdap) 1993 HEPATITIS B VACCINE (1 of 3 - 19+ 3-dose series) 1993 SCREENING FOR DIABETES 12/13/2016 COVID-19 VACCINE (1 - 2023-2 5 season) 2023 DEPRESSION SCREENING 03/04/2024 INFLUENZA VACCINE (#1) 2024 ZOSTER VACCINE (1 of 2) 2024 HIB VACCINE Aged Out No longer eligi ble based on patient's age to complete this topic HPV VACCINE Aged Out No longer eligi ble based on patient's age to complete this topic MENINGOCOCCAL (Group B) VACC INE SHARED DECISION-MAKING Aged Out No longer eligibl e based on patient's age to complete this topic MENINGOCOCCAL GROUPS A/C/Y/W VACCINE Aged Out No longer eligible b ased on patient's age to complete this topic Insurance [employer] [facility] Address: [address] [address] Care Teams Fine Dining Server Relationship Specialty Start Date End Date Adarsh Wilson MD [address] [place] [address] PCP - General Family Medicine 07/03/16
--- OUTSIDE RECORDS SUMMARY | 2024-09-22 13:24 | XMS_ITS | Continuity of Care Document ---
Author Organization [facility]ly [facility] [place] [address] [place] [address] [address] [place] [address] Phone Care Team Providers Care Managing Broker Name Role Phone Chavez OD, Edwin Unavailable Unavailable Procedures Procedure Date Contact Lens Hydrophilic, Spherical Medical Tax Eye Exam & Treatment Refraction CL Replacement - Vist[employer] Disp W/BW Soft Tax - Medical Eye Exam & Treatment Refraction Advance Directives Directive Yes / No Effective Date File Name No Information Encounters Encounter Description Practice Location Reason(s) For Visit Diagnoses Date Provider Providers Copied on Encounter [facility], [address] [place] [address] [address], [place], [place], [id number], tel:[phone] [facility] No Information Sep-1 5-201 0 Chavez OD Edwin. [facility] [address], [address], [place], [place], [facility], . tel:[phone] Referring Provider: Edwin Jorgensen, Aleah [facility] [address], [place], [place], [facility]. tel:[phone] [facility], [address] [place] [address] [address], [place], [place], [id number], tel:[phone] [facility] No Information Sep-0 2-201 0 Chavez OD Edwin. [address] [facility] [address], [place], [address], . tel:[phone] [facility], [address] [place], [place] [address], [place], [place], [id number], [place] tel:[phone] [facility] No Information Dec-0 5-200 8 Chavez OD Edwin. [address] [facility] , [address], [place], [address], . tel:[phone] [facility], [address], [place], [place], [id number], [place] tel:[phone] [facility] No Information Nov-2 2-200 8 Chavez OD Edwin. [address] [facility] , [address], [place], [address], [place]. tel:[phone] Family History Family Member Type Diagnosis Age At Onset No Information Payers Payer name Insurance type Covered republican ID Authoriza tion(s) No Information Social History Type Description Quantity Date Captured Comments Sex Female Smoking Status No Information Chief Complaint And Reason For Visit No Information Reason For Referral Reason For Referral No Information History Of Present Illness Encounter Date Complaint History Of Prese nt Illness No Information Functional Status Date Functional Assessmen t No Information Instructions Date Instruction Additional Infor mation No Information Assessments Type Assessment Date No Information Patient Care Teams Name Effective Dates (start - stop) Status Members No Information
== END 2024-09-22 13:34 | disposition home or self-care (01) ==
PROVIDERS: Emergency Provider Nurse Practitioner Family; PCP Family Medicine
DX: S50.862A Insect bite (nonvenomous) of left forearm, initial encounter (principal); L08.9 Local infection of the skin and subcutaneous tissue, unspecified; W57.XXXA Bitten or stung by nonvenomous insect and other nonvenomous arthropods, initial encounter
CPT/HCPCS: 99213; G0463